=== PATIENT | female | born 1965 | race Caucasian/White ===

== ENCOUNTER 2021-11-25 01:20 | Inpatient (IN) ==
[2021-11-25] MEDS ORDERED: Ondansetron 4 mg VIAL 2 MG/ML 2 ml VIAL IV PRN (02:05)
[2021-11-25 02:15] LABS: ABS Lymphocytes 0.7 10^3/ul (1.0-4.8); ABS Monocytes 0.3 10^3/ul (0-0.8); ABS Neutrophils 6.3 10^3/ul (1.5-7.7); Hematocrit 34 % (35-47); Lymphocyte % 10.1 %; Mean Corpuscular HGB Conc 35 g/dL (31-36); Mean Corpuscular Hemoglobin 28 pg (27-31); Mean Corpuscular Volume 81 fL (80-97); Mean Platelet Volume 7.7 fL (7.4-10.4); Platelet Count 301 10^3/uL (150-450); Red Blood Count 4.25 10^6 /uL (3.70-4.87); Red Cell Distribution Width 14 % (10-15); White Blood Count 7.4 10^3/uL (3.5-10.8)
[2021-11-25 02:29] LABS: INR 1.15 (0.86-1.15)
[2021-11-25 02:33] LABS: Albumin 3.7 g/dL (3.2-5.2); Calcium 8.7 mg/dL (8.6-10.3); Potassium 3.4 mmol/L (3.5-5.0); Total Bilirubin 0.5 mg/dL (0.2-1.0)
[2021-11-25 02:39] LABS: C Reactive Protein 147.99 mg/L (<8.01); Globulin 3.6 g/dL (2-4); Total Protein 7.3 g/dL (6.4-8.9); eGFR CKD-EPI 76.6 (>60)
[2021-11-25] MEDS ORDERED: Potassium Chlor 20 meq TAB.ER PO ONE (02:56)
[2021-11-25 03:02] LABS: Ferritin 1220.1 ng/mL (11-307)
[2021-11-25 03:25] LABS: TSH Ultra Thyroid Stim Horm 1.35 mcIU/mL (0.34-5.60)
[2021-11-25] MEDS: Enoxaparin 40 MG/0.4 ML SYR SUBCUT SCH ×2 (08:21→21:35)
[2021-11-25] MEDS: Fluticasone NASAL SPRAY 50MCG 16 gm SPRAY BTL BOTH NARES SCH (13:39)
[2021-11-26 06:02] LABS: ABS Lymphocytes 2.4 10^3/ul (1.0-4.8); ABS Monocytes 0.7 10^3/ul (0-0.8); ABS Neutrophils 9.5 10^3/ul (1.5-7.7); Hematocrit 35 % (35-47); Hemoglobin 12.3 g/dL (12.0-16.0); Mean Corpuscular HGB Conc 35 g/dL (31-36); Mean Corpuscular Hemoglobin 29 pg (27-31); Mean Corpuscular Volume 82 fL (80-97); Mean Platelet Volume 7.2 fL (7.4-10.4); Platelet Count 376 10^3/uL (150-450); Red Blood Count 4.31 10^6 /uL (3.70-4.87); Red Cell Distribution Width 14 % (10-15); White Blood Count 12.6 10^3/uL (3.5-10.8)
[2021-11-26 06:20] LABS: Albumin 3.9 g/dL (3.2-5.2); Albumin/Globulin Ratio 1.1 (1-3); C Reactive Protein 66.63 mg/L (<8.01); Calcium 9.2 mg/dL (8.6-10.3); Globulin 3.7 g/dL (2-4); Magnesium 2.3 mg/dL (1.9-2.7); Phosphorus 2.9 mg/dL (2.5-5.0); Potassium 3.2 mmol/L (3.5-5.0); Total Bilirubin 0.6 mg/dL (0.2-1.0); Total Protein 7.6 g/dL (6.4-8.9); eGFR CKD-EPI 66.5 (>60)
[2021-11-26] MEDS ORDERED: Potassium Chlor 20 meq TAB.ER PO ONE ×2 (08:02→12:00)
[2021-11-26] MEDS: Fluticasone NASAL SPRAY 50MCG 16 gm SPRAY BTL BOTH NARES SCH (08:08)
[2021-11-26] MEDS: Enoxaparin 40 MG/0.4 ML SYR SUBCUT SCH ×2 (08:08→20:07)
[2021-11-27 05:11] LABS: ABS Lymphocytes 1.8 10^3/ul (1.0-4.8); ABS Monocytes 0.4 10^3/ul (0-0.8); ABS Neutrophils 5.8 10^3/ul (1.5-7.7); Eosinophil % 0.2 %; Hematocrit 32 % (35-47); Hemoglobin 11.1 g/dL (12.0-16.0); Lymphocyte % 22.6 %; Mean Corpuscular HGB Conc 35 g/dL (31-36); Mean Corpuscular Hemoglobin 29 pg (27-31); Mean Corpuscular Volume 82 fL (80-97); Platelet Count 346 10^3/uL (150-450); Red Blood Count 3.88 10^6 /uL (3.70-4.87); Red Cell Distribution Width 14 % (10-15)
[2021-11-27 05:26] LABS: Albumin 3.3 g/dL (3.2-5.2); Calcium 8.5 mg/dL (8.6-10.3); Globulin 3.2 g/dL (2-4); Magnesium 2.1 mg/dL (1.9-2.7); Phosphorus 2.6 mg/dL (2.5-5.0); Potassium 3.4 mmol/L (3.5-5.0); Total Bilirubin 0.6 mg/dL (0.2-1.0); Total Protein 6.5 g/dL (6.4-8.9); eGFR CKD-EPI 73.6 (>60)
[2021-11-27] MEDS ORDERED: Potassium Chlor 20 meq TAB.ER PO ONE (09:30)
[2021-11-27] MEDS: Enoxaparin 40 MG/0.4 ML SYR SUBCUT SCH ×2 (11:01→20:38)
[2021-11-27] MEDS: Fluticasone NASAL SPRAY 50MCG 16 gm SPRAY BTL BOTH NARES SCH (11:48)
[2021-11-28] MEDS: Enoxaparin 40 MG/0.4 ML SYR SUBCUT SCH (08:25)
[2021-11-28] MEDS: Fluticasone NASAL SPRAY 50MCG 16 gm SPRAY BTL BOTH NARES SCH (08:25)
[2021-11-28 08:27] LABS: Albumin 3.5 g/dL (3.2-5.2); Albumin/Globulin Ratio 1.1 (1-3); C Reactive Protein 139.43 mg/L (<8.01); Calcium 8.9 mg/dL (8.6-10.3); Globulin 3.3 g/dL (2-4); Potassium 3.4 mmol/L (3.5-5.0); Total Bilirubin 0.5 mg/dL (0.2-1.0); Total Protein 6.8 g/dL (6.4-8.9); eGFR CKD-EPI 84.6 (>60)
[2021-11-28] MEDS ORDERED: Potassium Chlor 20 meq TAB.ER PO ONE (09:38)
[2021-11-28 11:55] VITALS: BP 125/76
== END 2021-11-28 15:15 | disposition home or self-care (01) | DRG 137 ==
LOC: ICU 01:20 → SUATTDRO 01:20 → MED 11-27 08:12
PROVIDERS: ADMIT Hospitalist; ATTEND Internal Medicine Critical Care Medicine